=== PATIENT | female | born 1960 | race Caucasian/White ===

== ENCOUNTER 2016-11-18 21:02 | Observation (INO) | payer SELFPAY ==
[~2016-11-18] VITALS: Ht 160 cm; Wt 88.3 kg
[~2016-11-18 21:02] MED LIST: ALBU8.5H INH; DOCU100T10 PO; HYDR-4072 PO; IBUP-1547 PO; PREN1TAB73 PO
--- OUTSIDE RECORDS SUMMARY | 2016-11-18 21:07 | XMS REPORT | Continuity of Care Document ---
Author Author [facility] Organization [facility] Address Unknown Phone Unavailable Support Name Relationship Address Phone CLEMENTINE PRESLEY APRN Caregiver [address] [place] [address] Unavailable RONNELL CARRINGTON MD Caregiver [address] [place] [address] Unavailable CARLITO EDWARDS Next Of Kin [address] [place] [address] C Insurance Providers Guarantor Stephanie Edwards Address [address] [place] [address] C Email [email or web address] Self Pay Subscriber's Name Stephanie Edwards Relationship 18 Self Advance Directives Directive Response Recorded Date/Time Ordered Resuscitation Status Full Code 09/27/16 11:20am Resuscitation Documents on File Yes 09/28/16 6:40am DPOA for Healthcare Only Yes 09/28/16 6:40am Living Will Yes 09/28/16 6:40am Problems Active Problems Medical Problem Onset Date Status Coronary artery disease Unknown Chronic Dysfunctional uterine bleeding Unknown Acute Mixed hyperlipidemia Unknown Chronic Type 2 diabetes mellitus without complications Unknown Chronic Type 2 diabetes, diet controlled Unknown Unstable angina Unknown Acute Surgical Problem Onset Date Status Status post laparoscopic hysterectomy Unknown Past Problems Medical Problem Onset Date Chest pain, rule out acute myocardial infarction Unknown Medications Current Home Medications Medication Dose Units Route Directions Days Qty Instructions Start Date Albuterol Sulfate (Proair Hfa 90 Mcg/Actuation) 8.5 Gm Hfa.aer.ad 2 Puff Inhalation Every 4 Hours as needed for Asthma 09/28/16 Docusate Sodium (Stool Softener) 100 Mg Tablet 1 Tab Oral Twice A Day 09/27/16 Hydrocodone/Acetaminophen (Hydrocodon-Acetaminoph 7.5-325) 7.5-325 Tablet 1-2 Tab Oral Every 4 Hours as needed for Pain 40 Tablet 09/29/16 Ibuprofen 800 Mg Tablet 800 Mg Oral Every 8 Hours as needed for Pain 30 Tablet 09/29/16 Pnv95/Ferrous Fumarate/Fa ( Tablet) 1 Each Tablet 1 Tab Oral Daily 09/27/16 Past Home Medications Medication Directions Ordered Status Acetaminophen (Tylenol) 325 Mg Tablet, 2 Tab Oral As Needed for Pain Discontinued Ferrous Gluconate 324 Mg Tablet, 324 Mg Oral Twice Daily With Meals 08/30/16 Discontinued Social History Social History Problem Response Recorded Date/Time Onset Date Status Reason for Hospitalization Hysterectomy 09/29/2016 8:59am Not Applicable Not Applicable Chewing Tobacco Status No 09/28/2016 6:15am Not Applicable Not Applicable Hx Substance Use No 09/28/2016 6:15am Not Applicable Not Applicable Hx Alcohol Use Y MONTHLY 09/28/2016 6:15am Not Applicable Not Applicable Has the pt used tobacco in the last 12 months Yes 09/28/2016 6:15am Not Applicable Not Applicable Tobacco Usage smoke 12/04/2015 4:53pm Not Applicable Not Applicable Query Response Start Date Stop Date Smoking Status Current every day smoker Hospital Discharge Instructions Instructions: Care Instructions: I was in the hospital because (patient own words): hysterectomy Discharge Diet: Regular Diet as Tolerated Discharge Activity: See Hyst. Instruction Sheet Follow Up Appointments: Dr. Carrington in 1-2 weeks as scheduled Pending Lab / Results: Will review at f/u apt Expected Signs/Symptoms: See Hyst. Instruction Sheet Notify Physician If: See Hyst. Instruction Sheet During Business Hours:: Call [phone] After Business Hours:: Call [phone] ([facility] [place]) Pain Management/Treatment: [place] Ibuprofen Pain Scale Utilized to Educate Patient: 0-10 Pain Scale Wound/Incision Care: See Hyst. Instruction Sheet Condition at time of discharge: Good Plan of Care Discharge Date 09/29/16 12:46pm Instructions/Education Provided Laparoscopic Hysterectomy (DC) Prescriptions See Medication Section Functional Status Query Response Date Recorded Mobility Status Ambulatory September 28, 2016 5:34pm Assistive Devices None September 28, 2016 5:34pm Activity Limitations Pain September 28, 2016 5:34pm Feeding Ability Independent September 28, 2016 5:34pm Toileting Ability Independent September 28, 2016 5:34pm Grooming Ability Independent September 28, 2016 5:34pm Dressing Ability Independent September 28, 2016 5:34pm Driving Ability Assist September 28, 2016 5:34pm Housework Ability Assist September 28, 2016 5:34pm Meal Preparation Ability Assist September 28, 2016 5:34pm Stair Climbing Ability Assist September 28, 2016 5:34pm Ability to complete ADL's impeded by No change September 28, 2016 5:34pm Cognitive/Perceptual Impairments Impaired vision September 28, 2016 5:34pm Visual Assistive Devices Glasses September 28, 2016 5:34pm Preferred Method of Learning Reading Demonstration September 28, 2016 5:34pm Allergies, Adverse Reactions, Alerts No known allergies. Immunizations Query Response on File Recorded Date/Time Hx Influenza Vaccination Y fall 201509/28/16 6:15am Hx Pneumococcal Vaccination Y 201109/28/16 6:15am Hx Influenza Vaccination Y fall 201509/28/16 6:15am Influenza Vaccine Hx APR 2016 08/30/16 10:59am Vital Signs Acute Vital Signs Vital Response Date/Time Temperature (Fahrenheit) 98.1 deg F (96.8 - 99.1) 09/29/2016 8:00am Temperature (Calculated Celsius) 36.46580 degrees C (36.0 - 37.3) 09/29/2016 8:00am Temperature Source Oral 09/29/2016 8:00am Pulse Rate (adult) 71 bpm (60 - 100) 09/29/2016 8:00am Respiratory Rate 16 breaths/min (10 - 20) 09/29/2016 8:00am O2 Sat by Pulse Oximetry 96 % (90 - 100) 09/29/2016 8:00am Oxygen Delivery Method Room Air 09/29/2016 8:00am Oxygen Delivery Method Nasal Cannula 09/28/2016 12:55pm Oxygen Flow Rate 1.00 L/min 09/28/2016 3:17pm Blood Pressure 119/69 mm Hg 09/29/2016 8:00am Blood Pressure Source Automatic Cuff 09/29/2016 8:00am Height (Feet) 5 feet 09/28/2016 5:56am Height (Inches) 3.00 inches 09/28/2016 5:56am Weight (Kilograms) 89.800 kg 09/29/2016 8:00am Body Mass Index (BMI) 33.9 09/28/2016 5:56am Results Laboratory Results Test Name Result Units Flags Reference Collection Date/Time Result Date/ Time Comments RDW Standard Deviation 45.8 FL 36.9-50.2 08/29/2016 8:38pm 08/29/2016 8 :57pm Prothromb Time International Ratio 1.03 0.76-1.04 08/29/2016 8:38pm 08/29/2016 9:12pm THERAPUTIC RANGE=2.00-3.00 FOR ANTI-THROMBOSIS THERAPUTIC RANGE=2.50-3.50 FOR IMPLANTED VALVE D-Dimer < 150 NG/ML 0-230 08/29/2016 8:38pm 08/29/2016 9:12pm <230 NG/ ML D-DU=PRESUMPTIVE NEGATIVE FOR PE OR DVT >230 NG/ML D-DU=ADDITIONAL EVAL FOR PE OR DVT RECOMMENDED Troponin I 0.089 ng/ml D 0-0.12 08/30/2016 4:52pm 08/30/2016 6:26pm Troponin values with a difference of 55% increase from orginal troponin value represent a true biological DELTA value. (%increase Calc=Orginal Troponin value, divided by subsequent Troponin value, multiplied by 100) SR-Mig-G-Type Natriuretic Peptide 139 PG/ML 0-175 08/29/2016 8:38pm 12/2016 9:09pm Rule in cut points: <50 years old=450; 50-75 years old=900; >75 years old=1800; When utilizing ProBNP rule-in cut points, adjustment for impaired renal function is typically not required. Magnesium Level 2.0 MG/DL 1.6-2.3 08/29/2016 8:38pm 08/29/2016 8:57pm Iron Level 20 UG/DL L 37-170 08/30/2016 4:52pm 08/31/2016 1:29am Total Iron Binding Capacity 477 UG/DL 261-497 08/30/2016 4:52pm 2016 12:52am Percent Iron Saturation 4 % L 9-55 08/30/2016 4:52pm 08/31/2016 1:29am Vitamin B12 Level 460 PG/ML 239-931 08/30/2016 4:52pm 08/31/2016 4: 06am White Blood Count 6.7 T/MM3 4.5-11.0 09/28/2016 6:06am 09/28/2016 7: 11am Red Blood Count 5.66 M/MM3 H 4.00-5.20 09/28/2016 6:06am 09/28/2016 7: 11am Hemoglobin 13.6 GM/DL 12-16 09/28/2016 4:16pm 09/28/2016 4:44pm Hematocrit 44.2 % 36-46 09/28/2016 4:16pm 09/28/2016 4:44pm Mean Corpuscular Volume 76.0 UM3 L 80-100 09/28/2016 6:06am 09/28/2016 7 :11am Mean Corpuscular Hemoglobin 23.7 UUG L 26-34 09/28/2016 6:06am 2016 7:11am Mean Corpuscular Hemoglobin Concent 31.2 GM/DL 31-37 09/28/2016 6:06am 09/28/2016 7:11am Platelet Count 209 T/MM3 130-400 09/28/2016 6:0609/28/2016 7:11am Mean Platelet Volume 9.5 UM3 9.4-12.4 09/28/2016 6:06am 09/28/2016 7: 11am Neutrophils % (Manual) 68.0 % H 33-66 09/28/2016 6:06am 09/28/2016 7: 16am Band Neutrophils % 1.0 % 0-6 09/28/2016 6:06am 09/28/2016 7:16am Lymphocytes % (Manual) 24.0 % 23-45 09/28/2016 6:06am 09/28/2016 7: 16am Monocytes % (Manual) 5.0 % 0-9.0 09/28/2016 6:06am 09/28/2016 7:16am Eosinophils % (Manual) 2.0 % 0-4 09/28/2016 6:06am 09/28/2016 7:16am Band Neutrophils # 0.1 T/MM3 09/28/2016 6:06am 09/28/2016 7:16am Absolute Neutrophils (Manual) 4.6 T/MM3 1.8-7.7 09/28/2016 6:06am 09/28 7:16am Lymphocytes # (Manual) 1.6 T/MM3 1-4.8 09/28/2016 6:06am 09/28/2016 7: 16am Monocytes # (Manual) 0.3 T/MM3 0-0.8 09/28/2016 6:06am 09/28/2016 7: 16am Eosinophils # (Manual) 0.1 T/MM3 0-0.5 09/28/2016 6:06am 09/28/2016 7: 16am Red Cell Morphology Comment ABNORMAL 09/28/2016 6:0609/28/2016 7 :16am Anisocytosis 3+ 09/28/2016 6:0609/28/2016 7:16am Icterus Index < 2 0-7 09/28/2016 6:0609/28/2016 6:38am Chemistry Specimen Hemolysis < 15 0-25 09/28/2016 6:0609/28/2016 6 :38am 0-25: Specimen Exhibited No Hemolysis. Turbidity < 20 0-20 09/28/2016 6:0609/28/2016 6:38am Sodium Level 149 MEQ/L H 134-144 09/28/2016 6:06am 09/28/2016 6:38am Potassium Level 3.7 MEQ/L 3.6-5 09/28/2016 6:06am 09/28/2016 6:38am Chloride Level 111 MEQ/L H 98-107 09/28/2016 6:06am 09/28/2016 6:38am Carbon Dioxide Level 25 MEQ/L 22-30 09/28/2016 6:06am 09/28/2016 6: 38am Anion Gap 13 MEQ/L 5-15 09/28/2016 6:0609/28/2016 6:38am Blood Urea Nitrogen 9.0 MG/DL 7-17 09/28/2016 6:0609/28/2016 6:38am Creatinine 0.6 MG/DL L 0.7-1.2 09/28/2016 6:0609/28/2016 6:38am BUN/Creatinine Ratio 15 RATIO 6-26 09/28/2016 6:06am 09/28/2016 6:38am Glomerular Filtration Rate Calc 103 09/28/2016 6:0609/28/2016 6: 38am Glucose Level 132 MG/DL H 65-110 09/28/2016 6:0609/28/2016 6:38am Calculated Osmolality 287 MOSM/KG H 261-280 09/28/2016 6:2016 6:38am Calcium Level 9.1 MG/DL 8.4-10.2 09/28/2016 6:0609/28/2016 6:38am Total Bilirubin 0.70 MG/DL 0.20-1.30 09/28/2016 6:06am 09/28/2016 6: 38am Alkaline Phosphatase 85 U/L 38-126 09/28/2016 6:06am 09/28/2016 6:38am Total Protein 7.4 G/DL 6.3-8.2 09/28/2016 6:06am 09/28/2016 6:38am Albumin 4.2 G/DL 3.5-5.0 09/28/2016 6:06am 09/28/2016 6:38am Globulin 3.2 G/DL 2.4-3.6 09/28/2016 6:06am 09/28/2016 6:38am Albumin/Globulin Ratio 1.3 RATIO 1.1-2.2 09/28/2016 6:06am 09/28/2016 6 :38am Aspartate Amino Transf (AST/SGOT) 65 U/L H 14-36 09/28/2016 6:06am 09/28 6:38am Alanine Aminotransferase (ALT/SGPT) 76 U/L H 9-52 09/28/2016 6:06am 02/2017 6:38am Urine Collection Type CLEANCATCH-MIDSTREAM 09/28/2016 5:54am 2016 6:29am Urine Color YELLOW YELLOW 09/28/2016 5:54am 09/28/2016 6:29am Urine Turbidity CLEAR CLEAR 09/28/2016 5:54am 09/28/2016 6:29am Urine Specific [place] 1.015 1.015-1.025 09/28/2016 5:54am 2016 6:29am Urine pH 5.5 5.0-8.0 09/28/2016 5:54am 09/28/2016 6:29am Urine Leukocyte Esterase NEGATIVE NEGATIVE 09/28/2016 5:54am 2016 6:29am Urine Nitrite NEGATIVE NEGATIVE 09/28/2016 5:54am 09/28/2016 6:29am Urine Protein NEGATIVE NEGATIVE 09/28/2016 5:54am 09/28/2016 6:29am Urine Glucose (UA) NEGATIVE NEGATIVE 09/28/2016 5:54am 09/28/2016 6: 29am Urine Ketones NEGATIVE NEGATIVE 09/28/2016 5:54am 09/28/2016 6:29am Urine Urobilinogen 0.2 EU/DL NORMAL 09/28/2016 5:54am 09/28/2016 6: 29am Urine Bilirubin NEGATIVE NEGATIVE 09/28/2016 5:54am 09/28/2016 6: 29am Urine Blood 2+ A NEGATIVE 09/28/2016 5:54am 09/28/2016 6:29am Urine WBC 1-3 /HPF 0-5 09/28/2016 5:54am 09/28/2016 7:02am Urine RBC 1-3 /HPF 0-3 09/28/2016 5:54am 09/28/2016 7:02am Urine Squamous Epithelial Cells 0-5 09/28/2016 5:54am 09/28/2016 7: 02am Urine Bacteria TRACE H NEGATIVE 09/28/2016 5:54am 09/28/2016 7:02am Urine Culture Indicated CULT NOT INDICATED 09/28/2016 5:54am 2016 7:02am Glucometer 128 mg/dL H 65-110 09/29/2016 10:10am 09/29/2016 10:38am Procedures Procedure Status Date Provider(s) Robot-assisted hysterectomy Completed 09/28/16 RONNELL CARRINGTON MD Encounters Encounter Location Arrival/Admit Date Discharge/Depart Date Attending Provider Departed Surgical [facility] 09/28/16 5:40am 09/29/16 12 :46pm RONNELL CARRINGTON MD Departed Surgical [facility] 08/29/16 9:34pm 08/30/16 8: 50pm RICARDO LACKEY MD [facility] 08/11/16 12:27pm CLEMENTINE PRESLEY APRN
--- OUTSIDE RECORDS SUMMARY | 2016-11-18 21:07 | XMS REPORT | Continuity of Care Document ---
Author Author [facility] Address Unknown Phone Unavailable Support Name Relationship Address Phone MARQUES HINES MD Caregiver [address] [place] [address] CARLITO EDWARDS Next Of Kin [address] [place] [id number] Insurance Providers Payer Name Policy Number Subscriber Name Relationship Self Pay YovanyStephanie 18 Self / Same As Patient Advance Directives Directive Response Recorded Date/Time Advanced Directives No 11/18/16 5:51pm Problems Active Problems Medical Problem Onset Date Status Altered mental status Unknown Acute Medications No known medications. Social History Query Response Start Date Stop Date Smoking Status Current every day smoker Hospital Discharge Instructions Current inpatient/outpatient. Discharge instructions are currently unavailable. Plan of Care Prescriptions Functional Status No functional status results. Allergies, Adverse Reactions, Alerts No known allergies. Immunizations No immunization records. Vital Signs Acute Vital Signs Vital Response Date/Time Temperature (Fahrenheit) 98 11/18/2016 8:22pm Pulse 73 bpm 11/18/2016 8:22pm Respirations 21 11/18/2016 8:22pm Results Laboratory Results Test Name Result Units Flags Reference Collection Date/Time Result Date/ Time Comments White Blood Count 9.65 10^3uL 4.0-11.0 11/18/2016 5:35pm 11/18/2016 6: 43pm Red Blood Count 5.84 10^6uL H 4.00-5.00 11/18/2016 5:35pm 11/18/2016 6: 43pm Hemoglobin 15.4 g/dL 12.0-15.5 11/18/2016 5:35pm 11/18/2016 6:43pm Hematocrit 46.80 % H 35.00-45.00 11/18/2016 5:35pm 11/18/2016 6:43pm Mean Corpuscular Volume 80 FL 80-100 11/18/2016 5:35pm 11/18/2016 6: 43pm Mean Corpuscular Hemoglobin 26.4 PG 26.0-34.0 11/18/2016 5:352016 6:43pm Mean Corpuscular Hemoglobin Concent 32.9 g/dL 31.0-37.0 11/18/2016 5: 35pm 11/18/2016 6:43pm Red Cell Distribution Width 23.7 % H 11.8-15.6 11/18/2016 5:35pm 2016 6:43pm Platelet Count 220 10^3uL 150-450 11/18/2016 5:35pm 11/18/2016 6:43pm Neutrophils (%) (Auto) 68 % H 51-67 11/18/2016 5:35pm 11/18/2016 6:43pm Lymphocytes (%) (Auto) 23 % 20-46 11/18/2016 5:35pm 11/18/2016 6:43pm Monocytes (%) (Auto) 7 % 3-11 11/18/2016 5:3511/18/2016 6:43pm Eosinophils (%) (Auto) 2 % 0-4 11/18/2016 5:35pm 11/18/2016 6:43pm Basophils (%) (Auto) 0 % 0-2 11/18/2016 5:3511/18/2016 6:43pm Neutrophils # (Auto) 6.5 X10^3 11/18/2016 5:35pm 11/18/2016 6:43pm Lymphocytes # (Auto) 2.2 X10^3 11/18/2016 5:35pm 11/18/2016 6:43pm Monocytes # (Auto) 0.7 X10^3 11/18/2016 5:35pm 11/18/2016 6:43pm Eosinophils # (Auto) 0.2 10^3uL 11/18/2016 5:35pm 11/18/2016 6:43pm Basophils # (Auto) 0.0 10^3uL 11/18/2016 5:35pm 11/18/2016 6:43pm Smear Scan SLIDE REVIEW: ANISOCYTOSIS=2+ MICROCYTIC=1+ 11/18/2016 5:35pm 11/18/2016 6:43pm Urine Collection Type CATHETER 11/18/2016 5:30pm 11/18/2016 6:31pm Urine Color Yellow 11/18/2016 5:30pm 11/18/2016 6:30pm Urine Clarity Clear 11/18/2016 5:30pm 11/18/2016 6:30pm Urine pH 7.0 5.0 - 8.0 11/18/2016 5:30pm 11/18/2016 6:30pm Urine Specific [place] 1.020 1.005-1.030 11/18/2016 5:30pm 2016 6:30pm Urine Protein Negative Negative 11/18/2016 5:30pm 11/18/2016 6:30pm Urine Glucose (UA) Negative Negative 11/18/2016 5:30pm 11/18/2016 6: 30pm Urine Blood Negative Negative 11/18/2016 5:30pm 11/18/2016 6:30pm Urine Ketones Negative Negative 11/18/2016 5:30pm 11/18/2016 6:30pm Urine Nitrite Negative Negative 11/18/2016 5:30pm 11/18/2016 6:30pm Urine Bilirubin Negative Negative 11/18/2016 5:30pm 11/18/2016 6: 30pm Urine Urobilinogen 1.0 mg/dL 0.2-1.0 11/18/2016 5:30pm 11/18/2016 6: 30pm Urine Leukocyte Esterase Negative Negative 11/18/2016 5:30pm 2016 6:30pm Sodium Level 145 mmol/L 135-150 11/18/2016 5:35pm 11/18/2016 6:37pm Potassium Level 3.9 mmol/L 3.5-5.1 11/18/2016 5:35pm 11/18/2016 6:37pm Chloride Level 106 mmol/L 98-108 11/18/2016 5:35pm 11/18/2016 6:37pm Carbon Dioxide Level 28 mmol/L -11/18/2016 5:35pm 11/18/2016 6: 37pm Anion Gap 15.3 MEQ/L H 3-15 11/18/2016 5:35pm 11/18/2016 6:37pm Blood Urea Nitrogen 11 mg/dL 7-11/18/2016 5:35pm 11/18/2016 6:37pm Creatinine 0.71 mg/dL 0.6-1.2 11/18/2016 5:35pm 11/18/2016 6:37pm BUN/Creatinine Ratio 15 10-11/18/2016 5:3511/18/2016 6:37pm Estimat Glomerular Filtration Rate 102.7 11/18/2016 5:352016 6:37pm Estimated GFR (Non- 84.9 11/18/2016 5:2016 6:37pm Glucose Level 149 mg/dL H 70-110 11/18/2016 5:3511/18/2016 6:37pm Calculated Osmolality 281 mosm/L 280-300 11/18/2016 5:11/18/2016 6 :37pm Calcium Level 9.5 mg/dL 8.8-10.8 11/18/2016 5:11/18/2016 6:37pm Calcium/Ionized Calcium Ratio 3.9 mg/dL 3.8-4.6 11/18/2016 5:11/18 6:37pm Total Bilirubin 0.4 mg/dL 0.1-1.0 11/18/2016 5:11/18/2016 6:37pm Alkaline Phosphatase 137 U/L H 38-126 11/18/2016 5:11/18/2016 6: 37pm Aspartate Amino Transf (AST/SGOT) 47 U/L H 15-37 11/18/2016 5:pm 11/18 6:37pm Alanine Aminotransferase (ALT/SGPT) 69 U/L H 30-65 11/18/2016 5: 6:37pm Total Creatine Kinase 57 U/L 30-135 11/18/2016 5:11/18/2016 6: 37pm Creatine Kinase MB 0.7 ng/mL 0.0-6.0 11/18/2016 5:11/18/2016 6: 46pm Troponin I < 0.012 ng/mL 0.010-0.080 11/18/2016 5:11/18/2016 6: 46pm Total Protein 8.1 g/dL 6.4-8.5 11/18/2016 5:11/18/2016 6:37pm Albumin 4.5 g/dL 3.4-5.0 11/18/2016 5:11/18/2016 6:37pm Albumin/Globulin Ratio 1.250 1.1-1.8 11/18/2016 5:35pm 11/18/2016 6: 37pm Thyroid Stimulating Hormone (TSH) 1.62 uIU/mL 0.46-4.68 11/18/2016 5: 35pm 11/18/2016 7:08pm C-Reactive Protein < 0.50 mg/dL 0.0-0.9 11/18/2016 5:35pm 11/18/2016 6: 37pm Procedures No known history of procedures. Encounters Encounter Location Arrival/Admit Date Discharge/Depart Date Attending Provider Registered Clinic [facility] 11/18/16 8:15pm MARQUES HINES MD Departed Emergency Room [facility] 11/18/16 5:35pm 11/18/16 8:26pm RENATA RENTERIA MD
[2016-11-18 21:08] VITALS: BP 164/90; PULSE 67; RESP 18; TEMP 96.8; O2SAT 97
[2016-11-18 21:21] VITALS: Ht 160 cm; Wt 88.3 kg
[2016-11-18] MEDS ORDERED: ONDANSETRON 4mg/2ml INJECTION IV PRN (21:30)
[2016-11-18] MEDS ORDERED: INSULIN ASPART 100 UNIT/ML SQ PRN (21:45)
[2016-11-18] MEDS ORDERED: GLUCOSE ORAL GEL 40% 37.5 G TUBE PO PRN (21:45)
[2016-11-18 21:53] LABS: HCT - HEMATOCRIT 43.8 % (36-46); HGB - HEMOGLOBIN 14.7 GM/DL (12-16); MEAN CORPUSCULAR HGB 27.3 UUG (26-34); MEAN CORPUSCULAR HGB CONC(MCHC 33.6 GM/DL (31-37); MEAN CORPUSCULAR VOLUME 81.3 UM3 (80-100); RED BLOOD COUNT 5.39 M/MM3 (4.00-5.20); WBC - WHITE BLOOD COUNT 8.8 T/MM3 (4.5-11.0)
--- NOTE | 2016-11-18 21:56 | HPPDOC ---
HPI - Adult Date DATE: 11/18/16 TIME: 21:45 General Chief Complaint: passing out History of Present Illness Please note that the patient was seen via telemedicine with nursing assistance on 11/18/2016. Mrs. Pedroza is a 56yo woman with h/o DM2 diet controlled, tobacco abuse and s/ p hyst 3 weeks ago after essentially normal L heart cath due to preceding chest pain. She was at her ihyhse-nm-zrw's today with her feeling fine but dry mouthed so took a drink of Dr. Tripp and then felt "like a bone was sideways in her chest." Passed out subsequently witnessed by at the bedside came around after minutes with perhaps some myoclonus but no kaela seizure and no loss of continence. No chest pain, palps, sob, nausea before of after this or later episode when her was driving her home. No orthostatics done prior to IVF at [facility] with normal labs and EKG there except mild transaminitis. No routine meds or recent OTC meds. Some loose stools lately but no lightheaded recently. Feels normal on my interview except feeling weak with headache. Normal CT brain and CT abd without contrast in [facility]. Past Medical History Past Medical History 1. Coronary artery disease-minor by patient report--08/30/2016 cath with normal EF and minimal plaquing throughout. 2. DM2 diet controlled. 3. H. pylori infection diagnosed June 2016 treated with triple therapy recently 4. Mild RAD with smoking 5. Asthma/allergic rhinitis 6. Gallbladder polyps Surgical History Patient's Surgical History: 1. Bilateral tubal ligation 1985 2. lap hyst this month. Current Medications Home Meds Active Scripts Ibuprofen (Ibuprofen) 800 Mg Tablet, 800 MG PO Q8H Y for PAIN, #30 TAB Prov:RONNELL CARRINGTON MD 09/29/16 Hydrocodone/Acetaminophen (Hydrocodon-Acetaminoph 7.5-325) 7.5-325 Tablet, 1-2 TAB PO Q4HR Y for PAIN, #40 TAB Prov:RONNELL CARRINGTON MD 09/29/16 Reported Medications Albuterol Sulfate (Proair HFA 90 mcg/actuation) 8.5 Gm Hfa.aer.ad, 2 PUFF INH Q4H Y for ASTHMA 09/28/16 Docusate Sodium (Stool Softener) 100 Mg Tablet, 1 TAB PO BID, TAB 09/27/16 Pnv95/Ferrous Fumarate/FA ( Tablet) 1 Each Tablet, 1 TAB PO DAILY, TAB 09/27/16 Allergies: Coded Allergies: No Known Allergies (Unverified , 09/28/16) Family History Family History: Father-coronary artery disease Mother-diabetes mellitus Social History Smoking Status: Current every day smoker Does patient use chewing tobac: No # of Packs/Tins per Day: 2 # of Years: 40 Second Hand Exposure: No Substance Use Type: does not use Alcohol Intake: none Advance Directives: Yes DPOA for Healthcare Only ([place]), Yes Full Code Review of Systems Unable to Obtain Comments 10+ neg aside from in HPI Physical Exam General General Nourishment: well nourished, well developed, apparent age, adult General Body Habitus: well groomed Height (Feet): 5 Height (Inches): 3.00 Telemetry Rhythm: Sinus Rhythm Eyes Brief: FOUND: EOMI Respiratory Brief: FOUND: equal bilaterally Comments scant wheeze Cardiovascular (brief) Cardiac Brief: FOUND: regular rate, regular rhythm, NOT FOUND: murmur, pedal edema Abdomen (brief) Abdominal Brief: FOUND: BS normo active x4, soft, NOT FOUND: distended Integumentary (brief) Integumentary Brief: FOUND: pink Neurologic (brief) Neurological Brief: FOUND: cranial 2-12 intact Neurologic RN Documented GCS Eye Opening: Verbal: Motor: Total: Psychiatric (brief) FOUND: alert, attentive, normal affect, oriented Assessment & Plan Problems: (1) Syncope Status: Acute Assessment & Plan: obs admit to tele with [facility] with orthostatic check but already given IVF at OSH. Likely vasovagal by hx. Supportive care. 08/30/2016 L heart cath reassuring. (2) Tobacco abuse Status: Chronic Assessment & Plan: told to stop. prn albuterol with RAD. (3) Reactive airway disease Status: Chronic (4) Transaminitis Status: Acute (5) Type 2 diabetes mellitus without complications Status: Chronic Assessment & Plan: diet, CBGs, SSI, A1C check with the above. Code Status Full Code Hospital Course Summary Disclaimer The hospital course summary below is not to be considered part of the above Progress Note. MARQUES HINES MD Nov 18, 2016 21:50
[2016-11-18] MEDS: NORMAL SALINE 1,000 ML IV SCH (21:59)
[2016-11-18] MEDS: HYDROCODONE/APAP 5 mg/325 mg TABLET PO PRN (21:59)
[2016-11-18 22:00] VITALS: PULSE 62; RESP 20
[2016-11-18] MEDS ORDERED: ALBUTEROL INH.SOLN. 2.5mg/3ml (0.083%) Neb. AEROSOL PRN (22:00)
--- NOTE | 2016-11-18 22:00 | NUR ---
ADMIT PT WAS A DIRECT ADMIT TO [facility], RM 162 FROM [facility]. PT WAS TRANSFER PER EMS. REPORT RECEIVED FROM EMS. PT IS ALERT AND ORIENTED X 3. PT STATES SHE HAS A HEADACHE. DR HINES ADMIT PT PER TELE. NEW ORDERS PLACED PER DR HINES. WHEN ASSESSMENT WAS COMPLETED PT BECAME TEARFUL, STATING MY HAD BLADDER CANCER. PT HAS A DAUGHTER WHO IS INVALID WITH DRUGS. PT SAID HER 2 GRANDCHILDREN HAD TO CAME LIVE WITH HER. ENCOURAGED PT TO TRY TO RELAX AND SLEEP. SHE STATES SHE WOULD TRY TO SLEEP.
[2016-11-18 22:11] VITALS: BP_SYST 146; BP_SYST 169; BP_SYST 193; BP_DIAS 102; BP_DIAS 106; BP_DIAS 90; PULSE 75
[2016-11-18 22:13] LABS: ANISOCYTOSIS 2+; BASOPHILS # (MANUAL) 0.1 T/MM3 (0-0.2); EOSINOPHILS # (MANUAL) 0.1 T/MM3 (0-0.5); LYMPHOCYTES # (MANUAL) 1.8 T/MM3 (1-4.8); MONOCYTES # (MANUAL) 0.4 T/MM3 (0-0.8); NEUTROPHILS #(MANUAL)-ABSOLUTE 5.9 T/MM3 (1.8-7.7); POIKILOCYTOSIS 1+; REACTIVE LYMPHOCYTES # 0.6 T/MM3 (0-0); TOTAL CELLS COUNTED 100 %
[2016-11-18] MEDS ORDERED: LORAZEPAM 1 MG TABLET PO PRN (22:45)
[2016-11-18 23:50] VITALS: BP 156/82; PULSE 70; RESP 18; TEMP 96.9; O2SAT 97
[2016-11-19] MEDS: IBUPROFEN 400 MG TABLET PO PRN ×2 (02:07→08:21)
[2016-11-19 04:14] VITALS: BP 142/79; PULSE 65; RESP 18; TEMP 96; O2SAT 97
[2016-11-19] MEDS: HYDROCODONE/APAP 5 mg/325 mg TABLET PO PRN (04:27)
[2016-11-19 05:22] LABS: ALBUMIN 3.6 G/DL (3.5-5.0); ALBUMIN/GLOBULIN RATIO 1.2 RATIO (1.1-2.2); ALKALINE PHOSPHATASE 96 U/L (38-126); ALT (SGPT) 59 U/L (9-52); ANION GAP 9 MEQ/L (5-15); AST (SGOT) 39 U/L (14-36); BUN/CREATININE RATIO 17 RATIO (6-26); CALCIUM 9.1 MG/DL (8.4-10.2); CHLORIDE 112 MEQ/L (98-107); CO2 - CARBON DIOXIDE 25 MEQ/L (22-30); CREATININE 0.7 MG/DL (0.7-1.2); GLOMERULAR FILTRATION RATE 86; GLUCOSE 127 MG/DL (65-110); POTASSIUM 4.2 MEQ/L (3.6-5); SODIUM 146 MEQ/L (134-144); TOTAL PROTEIN 6.5 G/DL (6.3-8.2)
--- NOTE | 2016-11-19 05:30 | NUR ---
SHIFT SUMMARY PT WAS GIVEN NORCO 5 MG PO AT 2159 FOR HEADACHE RATED 8/10. WHEN ASKED WHERE THE PAIN WAS PT STATED TO FACE AND MOVED HER HAND UP TO THE TOP OF HER HEAD. ATIVAN 1 MG PO AT 2244 FOR INCREASED ANXIETY. PT WAS AWAKE STILL AT MIDNIGHT STATING SHE FELT NAUSEATED. ZOFRAN 4 MG PO WAS GIVEN. PT CONTINUES TO HAVE A HEADACHE RATED 4-5/10. SHE ASKED FOR NORCO, IT WAS TO EARLY TO GIVE. MOTRIN 400 MG WAS GIVEN AT 0207. PT DID GO TO SLEEP FOR SHORT PERIOD. SHE WAS AWAKEN FOR LAB AROUND 0400. PT REQUESTED NORCO FOR MILD DISCOMFORT 4/10. DENIES NAUSEA OR ANXIETY AT THIS TIME. AT TIMES PT SEEM DISORIENTED FOR MINUTE AND THEN SHE IS OK.
[2016-11-19 07:34] VITALS: BP 134/77; PULSE 67; RESP 18; TEMP 98.1; O2SAT 95
[2016-11-19 07:36] VITALS: BP_SYST 134; BP_SYST 155; BP_DIAS 77; BP_DIAS 93; PULSE 67; PULSE 69
[2016-11-19 07:38] VITALS: BP 156/87; PULSE 111
[2016-11-19 07:57] VITALS: PULSE 111; RESP 18
[2016-11-19] MEDS: NORMAL SALINE 1,000 ML IV SCH (08:20)
[2016-11-19 10:56] VITALS: PULSE 58; RESP 16; O2SAT 96
[2016-11-19] MEDS ORDERED: KETOROLAC 30mg/ml INJECTION IV ONE (11:15)
[2016-11-19] MEDS ORDERED: KETOROLAC 30mg/ml INJECTION IM ONE (11:15)
[2016-11-19] MEDS ORDERED: METH4TAB3 PO (11:27)
--- NOTE | 2016-11-19 11:27 | NUR ---
CM SPOKE WITH PT, INTRODUCED SELF, EXPLAINED ROLE, PROVIDED CONTACT INFO. PT STATED SHE LIVES WITH HER AND THEIR 2 GRANDCHILDREN (THEY HAVE GUARDIANSHIP OF THE GRANDKIDS) IN [place]. SHE SAID HER DC PLAN IS TO RETURN HOME, AND HER WILL PICK HER UP. SHE SAID SHE DOES NOT HAVE ANY NEEDS/CONCERNS ABOUT DC. SHE SAID MONEY IS TIGHT (SHE HAS A PAPER ROUTE; GETS SSI; THEY GET $266.00 THROUGH [employer] FOR THE GRANDKIDS), BUT SHE HAS THE NEEDED DIABETIC SUPPLIES (I.E. GLUCOMETER, TEST STRIPS, ETC). DISCUSSED PURCHASING MEDS AT TIME OF DC IF ANY ARE PRESCRIBED; SHE SAID SHE COULD AFFORD MEDS LONG THEY ARE NOT VERY EXPENSIVE. SHE DOES NOT HAVE INSURANCE, SHE SAID. Addendum: 11/19/16 at 1130 by MIKAL RUBIO Amended: Links added.
--- NOTE | 2016-11-19 11:31 | NUR ---
BELLO FONTENOT IS 3. Addendum: 11/19/16 at 1132 by MIKAL SCHULTZ SW Amended: Links added.
--- NOTE | 2016-11-19 11:55 | DSPDOC ---
General Date Date DATE: 11/19/16 TIME: 11:51 Attending Physician Alfonzo Mccray MD Admitting Physician Alfonzo Mccray MD Consulting Physician Admitting Diagnosis Syncope Discharge Diagnosis Vasovagal syncope Pansinusitis Laboratory Laboratory Tests Test 11/18/16 21:46 11/18/16 21:58 11/19/16 04:13 11/19/16 06:20 White Blood Count 8.8T/MM3 (4.5-11.0) Red Blood Count 5.39M/MM3 (4.00-5.20) Hemoglobin 14.7GM/DL (12-16) Hematocrit 43.8% (36-46) Mean Corpuscular Volume 81.3UM3 (80-100) Mean Corpuscular Hemoglobin 27.3UUG (26-34) Mean Corpuscular Hemoglobin Concent 33.6GM/DL (31-37) RDW Standard Deviation 68.5FL (36.9-50.2) Platelet Count 198T/MM3 (130-400) Mean Platelet Volume 10.0UM3 (9.4-12.4) Immature Granulocyte % (Auto) % (0.0-0.5) Neutrophils (%) (Auto) % (33-66) Lymphocytes (%) (Auto) % (23-45) Monocytes (%) (Auto) % (0-9.0) Eosinophils (%) (Auto) % (0-4) Basophils (%) (Auto) % (0-2) Absolute Immature Granulocyte (auto T/MM3 (0.00-0.03) Absolute Neutrophils (auto) T/MM3 (1.8-7.7) Absolute Lymphocytes (auto) T/MM3 (1-4.8) Absolute Monocytes (auto) T/MM3 (0-0.8) Absolute Eosinophils (auto) T/MM3 (0-0.5) Absolute Basophils (auto) T/MM3 (0-0.2) Neutrophils % (Manual) 67.0% (33-66) Lymphocytes % (Manual) 20.0% (23-45) Reactive Lymphocytes % 7.0% (0-0) Monocytes % (Manual) 4.0% (0-9.0) Eosinophils % (Manual) 1.0% (0-4) Basophils % (Manual) 1.0% (0-2) Absolute Neutrophils (Manual) 5.9T/MM3 (1.8-7.7) Lymphocytes # (Manual) 1.8T/MM3 (1-4.8) Reactive Lymphocytes # 0.6T/MM3 (0-0) Monocytes # (Manual) 0.4T/MM3 (0-0.8) Eosinophils # (Manual) 0.1T/MM3 (0-0.5) Basophils # (Manual) 0.1T/MM3 (0-0.2) Poikilocytosis 1+ Anisocytosis 2+ Red Cell Morphology Comment Abnormal Troponin I < 0.012ng/ml (0-0.12) < 0.012ng/ml (0-0.12) Chemistry Specimen Hemolysis < 15 (0-25) < 15 (0-25) Glucometer 130mg/dL (65-110) 100mg/dL (65-110) Turbidity < 20 (0-20) Sodium Level 146MEQ/L (134-144) Potassium Level 4.2MEQ/L (3.6-5) Chloride Level 112MEQ/L (98-107) Carbon Dioxide Level 25MEQ/L (22-30) Anion Gap 9MEQ/L (5-15) Blood Urea Nitrogen 12.0MG/DL (7-17) Creatinine 0.7MG/DL (0.7-1.2) Glomerular Filtration Rate Calc 86 BUN/Creatinine Ratio 17RATIO (6-26) Glucose Level 127MG/DL (65-110) Hemoglobin A1c 6.7% (6.1-7.9) Calculated Osmolality 283MOSM/KG (261-280) Calcium Level 9.1MG/DL (8.4-10.2) Total Bilirubin 0.50MG/DL (0.20-1.30) Icterus Index < 2 (0-7) Aspartate Amino Transf (AST/SGOT) 39U/L (14-36) Alanine Aminotransferase (ALT/SGPT) 59U/L (9-52) Alkaline Phosphatase 96U/L (38-126) Total Protein 6.5G/DL (6.3-8.2) Albumin 3.6G/DL (3.5-5.0) Globulin 2.9G/DL (2.4-3.6) Albumin/Globulin Ratio 1.2RATIO (1.1-2.2) Test 11/19/16 11:00 Glucometer 103mg/dL (65-110) History of Present Illness Please note that the patient was seen via telemedicine with nursing assistance on 11/18/2016. Mrs. Pedroza is a 56yo woman with h/o DM2 diet controlled, tobacco abuse and s/ p hyst 3 weeks ago after essentially normal L heart cath due to preceding chest pain. She was at her [id number]'s today with her feeling fine but dry mouthed so took a drink of Dr. Tripp and then felt "like a bone was sideways in her chest." Passed out subsequently witnessed by at the bedside came around after minutes with perhaps some myoclonus but no kaela seizure and no loss of continence. No chest pain, palps, sob, nausea before of after this or later episode when her was driving her home. No orthostatics done prior to IVF at [facility] with normal labs and EKG there except mild transaminitis. No routine meds or recent OTC meds. Some loose stools lately but no lightheaded recently. Feels normal on my interview except feeling weak with headache. Normal CT brain and CT abd without contrast in [facility]. Hospital Course Patient ruled out for acute myocardial infarction with troponins. Given her recent negative cardiac catheterization in August of this year, no further evaluation is being done at this time. There were no arrhythmias seen on telemetry. It is believed that the etiology is vasovagal. Given the patient's evidence of pansinusitis on CAT scan, we will send home with a Medrol Dosepak. If there is cranial nerve VIII involvement from the pansinusitis, this may have been contributing to the syncope. Problems: (1) Syncope Status: Resolved Assessment & Plan: Patient ruled out for acute myocardial infarction with troponins. Given her recent negative cardiac catheterization in August of this year, no further evaluation is being done at this time. There were no arrhythmias seen on telemetry. It is believed that the etiology is vasovagal. Given the patient's evidence of pansinusitis on CAT scan, we will send home with a Medrol Dosepak. If there is cranial nerve VIII involvement from the pansinusitis, this may have been contributing to the syncope. (2) Tobacco abuse Status: Chronic Assessment & Plan: told to stop. prn albuterol with RAD. (3) Reactive airway disease Status: Chronic (4) Transaminitis Status: Acute (5) Type 2 diabetes mellitus without complications Status: Chronic Assessment & Plan: diet, CBGs, SSI, A1C check with the above. Code Status Full Code Home Meds Active Scripts Methylprednisolone (Medrol) 4 Mg Tab.ds.pk, 4 MG PO DIRECTED for 5 Days, TAB Prov:EDEN TREVIZO MD 11/19/16 Ibuprofen (Ibuprofen) 800 Mg Tablet, 800 MG PO Q8H Y for PAIN, #30 TAB Prov:RONNELL CARRINGTON MD 09/29/16 Reported Medications Albuterol Sulfate (Proair HFA 90 mcg/actuation) 8.5 Gm Hfa.aer.ad, 2 PUFF INH Q4H Y for ASTHMA 09/28/16 Discontinued Reported Medications Docusate Sodium (Stool Softener) 100 Mg Tablet, 1 TAB PO BID, TAB 09/27/16 Pnv95/Ferrous Fumarate/FA ( Tablet) 1 Each Tablet, 1 TAB PO DAILY, TAB 09/27/16 Discontinued Scripts Hydrocodone/Acetaminophen (Hydrocodon-Acetaminoph 7.5-325) 7.5-325 Tablet, 1-2 TAB PO Q4HR Y for PAIN, #40 TAB Prov:RONNELL CARRINGTON MD 09/29/16 Face to Face Encounter I met with patient on the day of dismissal and discussed follow up appointments , medications, and safety plan. Discharge Disposition Home EDEN TREVIZO MD Nov 19, 2016 11:54
--- NOTE | 2016-11-19 11:56 | NUR ---
DISMISSAL PT DISMISSED TO HOME VIA WHEELCHAIR TO VEHICLE. PT BELONGINGS PACKED, GO HOME INSTRUCTIONS GIVEN, SCRIPT CALLED TO [facility] AND [facility] PULLED.
--- NOTE | 2016-11-21 16:57 | NUR ---
DM screen Pt is Type 2 DM that is diet controlled Lab Hgb A1C 6.7 Pt was dismissed over the weekend when RD coverage is not available. RD will attempt to contact pt to offer out pt MNT
--- NOTE | 2016-11-22 09:38 | NUR ---
CM DPOA CONSULT CALLED PT FOR FOLLOW UP CALL, ADDRESSED DPOA CONSULT. PT STATED SHE HAS ONE ALREADY (CURRENTLY ON FILE) AND SHE DID NOT WANT TO COMPLETE ANOTHER ONE OR MAKE ANY CHANGES TO IT. Addendum: 11/22/16 at 0938 by MIKAL RUBIO Amended: Links added.
== END 2016-11-19 11:48 | disposition home or self-care (01) ==
LOC: MED 21:02
PROVIDERS: ADMIT Hospitalist; ATTEND Hospitalist
DX: R55 Syncope and collapse (principal); J32.4 Chronic pansinusitis; E11.9 Type 2 diabetes mellitus without complications; F17.210 Nicotine dependence, cigarettes, uncomplicated; J45.909 Unspecified asthma, uncomplicated; R74.0 Nonspecific elevation of levels of transaminase and lactic acid dehydrogenase [LDH]; Z79.1 Long term (current) use of non-steroidal anti-inflammatories (NSAID); Z79.899 Other long term (current) drug therapy; I25.10 Atherosclerotic heart disease of native coronary artery without angina pectoris; Z86.19 Personal history of other infectious and parasitic diseases
CPT/HCPCS: 36415; 80053; 82948; 83036; 84484; 85025; 96360; 96361; 99218; 99406